=== PATIENT | female | born 1985 ===

== ENCOUNTER → 2022-03-24 | Outpatient (CLI) | payer OTHER | END | disposition home or self-care (01) | LOC: LAB 18:10 | DX: N76.0 Acute vaginitis (principal) ==

== ENCOUNTER → 2022-10-07 | Outpatient (CLI) | payer OTHER ==
[2022-10-09 03:09] LABS: CHLAMYDIA TRACHOMATIS, NAA Negative (Negative); HPV 16 Negative (Negative); HPV 18 Negative (Negative); HPV OTHER HR TYPES Negative (Negative)
== END ==
LOC: LAB 13:54 → LAB SHORT 13:54
PROVIDERS: Obstetrics & Gynecology
DX: Z01.419 Encounter for gynecological examination (general) (routine) without abnormal findings (principal); Z11.3 Encounter for screening for infections with a predominantly sexual mode of transmission
CPT/HCPCS: 87491; 87591; 87624; G0145

== ENCOUNTER → 2023-03-27 | Outpatient (CLI) | payer OTHER ==
[~2023-03-27] MED LIST: ACYC200 PO; ASPI81CH PO; PRENATAL TABLE1 EAC2 PO
== END | disposition home or self-care (01) ==
LOC: LAB 11:39 → LAB SHORT 11:39
DX: O09.893 Supervision of other high risk pregnancies, third trimester (principal); Z3A.00 Weeks of gestation of pregnancy not specified
CPT/HCPCS: 87081; 87150

== ENCOUNTER 2023-03-31 20:05 | Inpatient (IN) | payer OTHER ==
[~2023-03-31] VITALS: Ht 170.2 cm; Wt 92.2 kg
[2023-03-31 20:28] VITALS: BP 132/78
[2023-03-31 20:39] LABS: BASOPHILS ABSOLUTE AUTO 0.01 K/mm3 (0.00-0.23); BASOPHILS PERCENT AUTO 0 % (0-2); EOSINOPHILS ABSOLUTE AUTO 0.06 K/mm3 (0.00-0.68); EOSINOPHILS PERCENT AUTO 1 % (0-6); Hematocrit 29.3 % (33.0-51.0); Hemoglobin 10.4 g/dL (11.5-16.0); IMMATURE GRAN ABSOLUTE AUTO 0.03 K/mm3 (0.00-0.10); IMMATURE GRAN PERCENT AUTO 0 % (0-1); LYMPHOCYTES ABSOLUTE AUTO 1.79 K/mm3 (0.84-5.20); LYMPHOCYTES PERCENT AUTO 22 % (21-46); MONOCYTES ABSOLUTE AUTO 0.44 K/mm3 (0.16-1.47); MONOCYTES PERCENT AUTO 5 % (4-13); Mean Corpuscular HGB 32.3 pg (26.0-34.0); Mean Corpuscular HGB Conc 35.5 g/dL (31.5-36.5); Mean Corpuscular Volume 91 fL (80-100); Mean Platelet Volume 10.4 fL (9.1-12.4); NEUTROPHILS ABSOLUTE AUTO 5.79 K/mm3 (1.96-9.15); NEUTROPHILS PERCENT AUTO 71 % (41-73); Platelet Count 190 K/mm3 (150-400); RDW Coefficient Variation 13.4 % (11.7-14.2); RDW Standard Deviation 44.3 fL (35.1-46.3); Red Blood Cell Count 3.22 M/mm3 (3.80-5.20); White Blood Cell Count 8.12 K/mm3 (4.00-11.30)
[2023-03-31] MEDS ORDERED: ACYC200 PO ×2 (20:41)
[2023-03-31] MEDS ORDERED: ASPI81CH PO ×2 (20:42)
[2023-03-31] MEDS ORDERED: PRENATAL TABLE1 EAC2 PO ×2 (20:42)
[2023-03-31 20:57] LABS: Protein, Urine Random 34.2 mg/dL (0.0-11.9); Protein/Creat Ratio, Ur Random 0.1
[2023-03-31 21:01] VITALS: BP 137/81
[2023-03-31 21:01] LABS: Albumin, Blood 2.6 g/dL (3.4-5.0); Albumin/Globulin Ratio 0.7 (0.8-1.8); Bilirubin, Total 0.5 mg/dL (0.1-1.0); Bun/Creatinine Ratio 14.8 (12.0-20.0); Calcium, Blood 8.9 mg/dL (8.5-10.1); Creatinine, Blood 0.54 mg/dL (0.40-1.00); Globulin, Blood 3.5 g/dL (2.2-4.0); Potassium, Blood 3.8 mmol/L (3.5-5.5); Total Protein, Blood 6.1 g/dL (6.4-8.2)
[2023-03-31 21:16] VITALS: BP 129/77
[2023-03-31 21:32] VITALS: BP 126/67
[2023-03-31 21:46] VITALS: BP 128/70
[2023-04-01] VITALS (36 sets, daily range): BP systolic 120–191; BP diastolic 59–88
[2023-04-02 00:59] VITALS: BP 129/72
[2023-04-02 07:39] VITALS: BP 143/71
[2023-04-02 11:47] VITALS: BP 133/74
== END 2023-04-02 12:50 | disposition home or self-care (01) | DRG 806 ==
LOC: OBS 20:05 → BC 20:13
PROVIDERS: Obstetrics & Gynecology; ADMIT Family Medicine
PROC: 10E0XZZ Delivery of Products of Conception, External Approach (ICD-10-PCS; principal; 2023-04-01)
PROC: 0KQM0ZZ Repair Perineum Muscle, Open Approach (ICD-10-PCS; 2023-04-01)
PROC: 10907ZC Drainage of Amniotic Fluid, Therapeutic from Products of Conception, Via Natural or Artificial Opening (ICD-10-PCS; 2023-04-01)
PROC: 3E033VJ Introduction of Other Hormone into Peripheral Vein, Percutaneous Approach (ICD-10-PCS; 2023-04-01)
PROC: 3E0DXGC Introduction of Other Therapeutic Substance into Mouth and Pharynx, External Approach (ICD-10-PCS; 2023-04-01)
PROC: 3E0R3BZ Introduction of Anesthetic Agent into Spinal Canal, Percutaneous Approach (ICD-10-PCS; 2023-04-01)
PROC: 00HU33Z Insertion of Infusion Device into Spinal Canal, Percutaneous Approach (ICD-10-PCS; 2023-04-01)
DX: O13.4 Gestational [pregnancy-induced] hypertension without significant proteinuria, complicating childbirth (principal); O98.32 Other infections with a predominantly sexual mode of transmission complicating childbirth; Z37.0 Single live birth; A60.00 Herpesviral infection of urogenital system, unspecified; Z3A.37 37 weeks gestation of pregnancy; O70.1 Second degree perineal laceration during delivery; Z88.2 Allergy status to sulfonamides; Z98.890 Other specified postprocedural states
CPT/HCPCS: 36415; 51702; 80053; 82570; 84156; 85025; 86850; 86900; 86901; 86923; A9270; J0690; J1885; J2590; J7120

== ENCOUNTER → 2024-10-10 | Outpatient (CLI) | payer SELFPAY | LOC: LAB SHORT 09:41 → LAB 09:41 | DX: J02.9 Acute pharyngitis, unspecified (principal) | CPT/HCPCS: 87081; 87147 ==